=== PATIENT | female | born 1980 | race Caucasian/White ===

== ENCOUNTER 2018-10-14 20:00 | Inpatient (IN) | payer OTHER ==
--- NOTE | 2018-10-14 16:59 | PDOC.FPROB ---
Addendum entered and electronically signed by Crystal Garcias MD 10/14/18 23:21 : US @ 38.2wks - Fetus: single, cephalic BPD: 8.95, HC: 33.07, AC: 34.35, FL: 7.78 EFW: 3447, [place]: 63.8% No abnormalities of anatomy OSIRIS 18 Original Note: FMR OB H&P: HPI - History of Present Illness Chief Complaint: balloon induction Indentification: at 39.4 by LMP History of Present Illness: at 39.4 by LMP here for medically indicated IOL A2GDM. complicated by late to care. Had 3T U/S done, prior deliveries were all and home births. Diagnosed with A2GDM this and per notes sugars have been controlled on metformin. Reports sugars have been running 95- 103 fasting and 2hrs post prandial around 95. Today she denies VB, LOF, CTX. Denies headaches, vision changes, NVD. Endorses FM. Endorses swelling in hands and feet more than usual. Denies polyuria, polydipsia. F F Primary Care Physician: Dr. Seamus Sauceda FMR OB H&P: Current - Care : 11 Para: [id number] Gestational age: 39.4 Due date: 10/17/18 Dating Criteria: LMP, 3T sono - OB Labs Blood type: A RH: positive Antibody Screen: unknown HIV: negative RPR: negative HepBsAg: negative Rubella: immune Quad screen: unknown 1 hour gtt: not done GBS: negative - Anatomy Survey Anatomy survey: US @ 30w2D - Presentation: cephalic - Fetus: single, female BPD: 7.5 HC: 29.39 AC: 28.48 FL: 6.32 EFW 1951 [place] 94.3% No abnormalities - Additional Ultrasound Additional: US performed today: OSIRIS of 24 cm FMR OB H&P: History - Past Medical History PMH: Rheumatoid arthritis - OB History OB History: #1 - miscarriage #2 - 03/20/2001, 37+wks, , Male #3 - 05/03/2002, 36wks, , Male - Induced due to non-reassuring heart tones #4 - 03/20/2005, 37+wks, , Male #5 - 06/26/2007, 37+wks, , Male #6 - 04/18/2010, 37+wks, , Female #7 - 12/20/2011, 37+wks, , Male #8 - 04/07/2013, 37+wks, , Female #9 - miscarriage #10 - 03/16/2014, 38wks, , Male #11 - 03/12/2015, 40wks, , Male - Surgical History Sx History: denies - Social History Social History: denies t/e/d - Family History Family History: denies hx of congenital malformations FMR OB H&P: Medications - Current Home Medications: Medication Instructions Recorded Confirmed Type metFORMIN [Glucophage] 500 mg PO BID 10/14/18 10/14/18 History Allergies/Adverse Reactions: Allergies Allergy/AdvReac Type Severity Reaction Status Date / Time No Known Allergies Allergy Verified 10/14/18 21:18 FMR OB H&P: ROS - Review of Systems General: denies: fever/chills, weight/appetite/sleep changes, night sweats, fatigue Eyes: denies: vision changes, double vision, scotomas, floaters ENT: denies: nasal congestion, rhinorrhea, sore throat Cardiovascular: reports: edema. denies: chest pain, palpitation Respiratory: denies: cough, congestion, shortness of breath Gastrointestinal: denies: abdominal pain, nausea, vomiting, diarrhea, constipation Genitourinary (Female): reports: contractions (irregular). denies: dysuria, vaginal discharge, vaginal pain, vaginal bleeding, vaginal pressure Neurologic: denies: weakness Integumentary: denies: rash, lesions FMR OB H&P: Vital Signs - Heart Tones Baseline: 145 Variability: moderate Acceleration: present Deceleration: absent Category: category 1 [place] contractions every: irregular FMR OB H&P: Physical Exam - Physical Exam General: NAD, awake, alert and oriented HEENT: normocephalic and atraumatic, PERRLA, MMM, grossly normal vision, grossly normal hearing, normal nasal mucosa, good dention Neck: supple, FROM, trachea midline Chest: non-tender to palpation, no lesions Breast: symmetric, non-tender, no palpable masses, no skin changes Heart: RRR, normal S1/S2, no murmurs/rubs/gallops, pulses present, no edema General: CTAB, no respiratory distress, good air movement, no rales/rhonchi, no wheezing, no retractions Abdomen: soft, gravid, non-tender, bowel sound present Musculoskeletal: normal gait and station, FROM in all four extremities Deviation from normal: trace edema in bilateral LE Skin: no rash, good tugor, capillary refill <2 seconds Lymphatic: no unusual bruising or bleeding, no purpura, no petechia Psychiatric: intact recent and remote memory, good judgement and insight, normal mood and affect - Pelvic Exam Vulva: normal hair distribution SVE: /-3 Wyatt score: 7 Membranes: intact Presentation: cephalic Estimated Weight: 8 lbs FMR OB H&P: A/P - Problem List (1) Grand multipara in labor in third trimester Current Visit: No Status: Acute Code(s): O09.43 - SUPRVSN OF W GRAND MULTIPARITY, THIRD TRIMESTER (2) Gestational diabetes Current Visit: No Status: Acute Code(s): O24.419 - GESTATIONAL DIABETES MELLITUS IN , UNSP CONTROL (3) AMA (advanced maternal age) multigravida 35+ Current Visit: No Status: Acute Code(s): O09.529 - SUPERVISION OF ELDERLY MULTIGRAVIDA, UNSPECIFIED TRIMESTER (4) Late care Current Visit: No Status: Acute Code(s): O09.30 - SUPRVSN OF PREG W INSUFFICIENT ANTENAT CARE, UNSP TRIMESTER (5) Single in third trimester Current Visit: No Status: Acute Code(s): Z34.93 - ENCNTR FOR SUPRVSN OF NORMAL PREG, UNSP, THIRD TRIMESTER (6) Polyhydramnios affecting Current Visit: Yes Status: Acute Code(s): O40.9XX0 - POLYHYDRAMNIOS, UNSP TRIMESTER, NOT APPLICABLE OR UNSP Discussion: 38 yo at 39.4 by LMP here for medically indicated IOL for A2GDM sIUP, term in multip - FHT:145 - SVE: /-3 - Wyatt: 4 - Desires PP BTL - Will get glucose, CMP, GC/Ch, start IVF - FHT: cat 1, mod rhett, accels present, no decels - Will type and cross 2 uPRBCs due to patient being at risk for PPH - Will start pitocin and titrate as tolerated - Patient unsure of epidural - will have patient watch video - Admit to L&D, plan for Polyhydramnios - measured w/ US on arrival, OSIRIS of 24 cm - May proceed with slow leak AROM if needed once baby more engaged, risk for cord prolapse A2GDM - POC, insulin if needed - Will obtain glucose now, Q4 glucose checks. Will increase glucose check frequency if needed. Hold metformin. AMA - Aware Late to PNC - Aware, no prior records aside from clinic [facility] - Aware Case discussed with Dr. Camacho Addkiaraum - Attending - Attending Attestation Date/Time: 10/14/182137 I personally evaluated the patient and discussed the management with Dr. Garcias I agree with the History, Examination, Assessment and Plan documented above with any addition or exceptions noted below. 38 yo female at 39.4 wks by LMP/30.2 wk sono admitted for IOL 2/2 A2GDM and polyhydramnios. FIDELINA: 10/17/18 complications: AMA, grandmultip, uncontrolled A2GDM, polyhydramnios, late to care, hx of medically indicated PTD at 36 wks, BMI 30, Anemia of VS reviewed. Bedside sono: Cephalic. OSIRIS 24 cm. Wyatt 7. 4 cm. R/B/A discussed. Consents signed. Will proceed with pitocin. Continuous monitoring. Repeat exam in 4 hours or as needed. GBS negative. Declined Flu and Tdap. Unable to locate chlamydia, gonorrhea, or pap smear. CT/ GC PCR collected today. Will need pp pap. CMP pending. Will continue acuchecks q 4 hours in latent labor and switch to q 1 to 2 hours in active labor. Will correct with SSI. Risk for PPH. Will use pitocin and miso during 3rd stage of labor. 2 units placed on hold. Carloz
[2018-10-14 21:28] VITALS: BMI 32.9
[2018-10-14] MEDS: Lactated Ringer's 1,000 ML IV SCH (21:50)
[2018-10-14] MEDS ORDERED: Promethazine HCl 25 MG/ML VIAL IM PRN (21:55)
[2018-10-14] MEDS ORDERED: Ondansetron PF 4 MG/2 ML Vial IVP PRN (21:55)
[2018-10-14] MEDS ORDERED: Lidocaine 1% (PF) 30 ML VIAL SC PRN (21:55)
[2018-10-14] MEDS ORDERED: Lactated Ringer's 1,000 ML IV SCH (22:15)
[2018-10-14 22:22] LABS: Hemoglobin 10.9 g/dL (12.0-16.0); Mean Corpuscular HGB CONC 32.1 g/dL (32.0-36.0); Mean Corpuscular Hemoglobin 25.2 pg (27.0-31.0); Mean Corpuscular Volume 78.6 fL (78.0-98.0); Mean Platelet Volume 10.3 fL (7.4-10.4); Platelet Count 222 thou/uL (130-400); RBC Distribution Width 14.8 % (11.5-14.5); Red Blood Cell (RBC) Count 4.32 mill/uL (4.20-5.40); White Blood Cell (WBC) Count 10.2 thou/uL (4.8-10.8)
[2018-10-14 22:36] LABS: ALT (SGPT) Less than 7 U/L (8-55); AST (SGOT) 10 U/L (5-34); Albumin 3.2 g/dL (3.5-5.0); Alkaline Phosphatase 156 U/L (40-150); Anion Gap 14 mmol/L (10-20); BUN (Urea Nitrogen) 11 mg/dL (7.0-18.7); Bilirubin, Total 0.4 mg/dL (0.2-1.2); Calc. Creatinine Clearance 176 mL/min (70-130); Calcium 8.7 mg/dL (7.8-10.44); Carbon Dioxide 21 mmol/L (22-29); Chloride 106 mmol/L (98-107); Estimated GFR-MDRD Greater than 90; Globulin 2.7 g/dL (2.4-3.5); Glucose 93 mg/dL (70-105); Protein, Total 5.9 g/dL (6.0-8.3); Sodium 137 mmol/L (136-145)
[2018-10-14 22:54] LABS: Syphilis Antibody Nonreactive (Nonreactive)
[2018-10-14 22:55] LABS: HBSAg Index 0.24 S/CO (0-0.99); Hep B Surf Ag Non-Reactive S/CO (NonReactive)
[2018-10-14] MEDS ORDERED: NS w/ Oxytocin 10 units 500 ML ONE (22:56)
[2018-10-14] MEDS ORDERED: NS w/ Oxytocin 10 units 500 ML IV SCH (23:00)
[2018-10-15] MEDS ORDERED: Fentanyl 4 mcg/Bup 0.1% Cadd 100 ML ONE ×2 (00:18→06:34)
[2018-10-15] MEDS ORDERED: Lidocaine 1.5%/Epinephrine 1:200,000 5 ML AMPUL IJ ONE (00:34)
[2018-10-15] MEDS ORDERED: Promethazine HCl 25 MG/ML VIAL IM PRN (00:50)
[2018-10-15] MEDS ORDERED: ePHEDrine/0.9% NaCl/PF SYRINGE 50 mg/10 ml SLOW IVP PRN (00:50)
[2018-10-15] MEDS ORDERED: Eucerin (Mineral Oil/Petrolatum,White) 30 gm Jar TOP PRN (00:50)
[2018-10-15] MEDS ORDERED: diphenhydrAMINE 50 MG/ML VIAL IVP PRN (00:50)
[2018-10-15] MEDS ORDERED: Naloxone HCl 0.4 mg/ml Vial IVP PRN ×2 (00:50)
[2018-10-15] MEDS: Fentanyl 4 mcg/Bupivacaine 0.1% Cassette 100 ML EPIDURAL SCH ×2 (00:50→06:36)
[2018-10-15] MEDS ORDERED: Lactated Ringer's 500 ML IV PRN (00:50)
[2018-10-15] MEDS ORDERED: Acetaminophen 325 MG TAB PO PRN (00:50)
[2018-10-15] MEDS ORDERED: Ondansetron PF 4 MG/2 ML Vial IVP PRN (00:50)
[2018-10-15] MEDS: Lactated Ringer's 1,000 ML IV SCH (00:54)
[2018-10-15] MEDS ORDERED: Communication Order-Pharmacy FS SCH (01:00)
[2018-10-15] MEDS ORDERED: Misoprostol 200 MCG TAB ONE (02:56)
--- NOTE | 2018-10-15 02:58 | PDOC.LDPN ---
Labor & Delivery Progress Note - Subjective Subjective: comfortable - Objective Vital signs reviewed and normal: yes General: NAD, resting, breathing through contractions Uterine fundus: non tender Dilation: 5 Effacement: 50% Station: -3 FHT: category 1, early decelerations, variability present [place] contractions every: every 2-3 min Other exam findings: FHR 140 AROM: clear fluid Resuscitative measures: maternal IV fluids - Assessment (1) Grand multipara in labor in third trimester Code(s): O09.43 - SUPRVSN OF W GRAND MULTIPARITY, THIRD TRIMESTER Status: Acute (2) Gestational diabetes Code(s): O24.419 - GESTATIONAL DIABETES MELLITUS IN , UNSP CONTROL Status: Chronic Qualifiers: Gestational diabetes mellitus control: oral hypoglycemic-controlled Trimester: third trimester Qualified Code(s): O24.415 - Gestational diabetes mellitus in , controlled by oral hypoglycemic drugs (3) AMA (advanced maternal age) multigravida 35+ Code(s): O09.529 - SUPERVISION OF ELDERLY MULTIGRAVIDA, UNSPECIFIED TRIMESTER Status: Chronic Qualifiers: Trimester: unspecified trimester Qualified Code(s): O09.529 - Supervision of elderly multigravida, unspecified trimester (4) Late care Code(s): O09.30 - SUPRVSN OF PREG W INSUFFICIENT ANTENAT CARE, UNSP TRIMESTER Status: Acute (5) Single in third trimester Code(s): Z34.93 - ENCNTR FOR SUPRVSN OF NORMAL PREG, UNSP, THIRD TRIMESTER Status: Acute Plan: continue plan of care, pitocin for augmentation -: 38 yo at 39.4 by LMP here for medically indicated IOL for A2GDM sIUP, term in multip - FHT:140 - SVE: /-3 @ 0230 - Desires PP BTL - continue IVF - FHT: cat 1, mod rhett, accels present, early decels - CTX every 2-3min - SROM @ 0230 - sugars controlled - Will type and cross 2 uPRBCs due to patient being at risk for PPH - Pit at 6, adequate CTX - Epidural placed at 0030, patient comfortable - Continue current management, plan for Polyhydramnios - measured w/ US on arrival, OSIRIS of 24 cm - SROM @ 0230 A2GDM - POC, insulin if needed - Q4 glucose checks. Hold metformin. Sugars wnl AMA - Aware Late to PNC - Aware, no prior records aside from clinic [facility] - Aware Case discussed with Dr. Camacho Addendum - Attending - Attending Attestation Date/Time: 10/15/18 0300 I personally evaluated the patient and discussed the management with Dr. Garcias I agree with the History, Examination, Assessment and Plan documented above with any addition or exceptions noted below. 38 yo female at 39.5 wks by LMP/30.2 wk sono admitted for IOL 2/2 A2GDM and polyhydramnios. FIDELINA: 10/17/18 complications: AMA, grandmultip, uncontrolled A2GDM, polyhydramnios, late to care, hx of medically indicated PTD at 36 wks, BMI 30, Anemia of VS reviewed. Bedside sono: Cephalic. OSIRIS 24 cm. Now 5 cm. Continue pit per protocol. FHT cat 1 tracing. Continuous monitoring. Repeat exam in 2 hours or as needed. GBS negative. Declined Flu and Tdap. Unable to locate chlamydia, gonorrhea, or pap smear. CT/ GC PCR collected today. Will need pp pap. Will continue acuchecks q 4 hours in latent labor and switch to q 1 to 2 hours in active labor. Will correct with SSI. Risk for PPH. Will use pitocin and miso during 3rd stage of labor. 2 units placed on hold. Carloz
--- NOTE | 2018-10-15 04:41 | PDOC.LDPN ---
Labor & Delivery Progress Note - Subjective Subjective: comfortable - Objective Vital signs reviewed and normal: yes General: NAD, resting, breathing through contractions Uterine fundus: non tender Dilation: 5 Effacement: 50% Station: -3 FHT: category 1, variability present [place] contractions every: every 2-4 min AROM: clear fluid Resuscitative measures: maternal IV fluids - Assessment (1) Grand multipara in labor in third trimester Code(s): O09.43 - SUPRVSN OF W GRAND MULTIPARITY, THIRD TRIMESTER Status: Acute (2) Gestational diabetes Code(s): O24.419 - GESTATIONAL DIABETES MELLITUS IN , UNSP CONTROL Status: Chronic Qualifiers: Gestational diabetes mellitus control: oral hypoglycemic-controlled Trimester: third trimester Qualified Code(s): O24.415 - Gestational diabetes mellitus in , controlled by oral hypoglycemic drugs (3) AMA (advanced maternal age) multigravida 35+ Code(s): O09.529 - SUPERVISION OF ELDERLY MULTIGRAVIDA, UNSPECIFIED TRIMESTER Status: Chronic Qualifiers: Trimester: unspecified trimester Qualified Code(s): O09.529 - Supervision of elderly multigravida, unspecified trimester (4) Late care Code(s): O09.30 - SUPRVSN OF PREG W INSUFFICIENT ANTENAT CARE, UNSP TRIMESTER Status: Acute (5) Single in third trimester Code(s): Z34.93 - ENCNTR FOR SUPRVSN OF NORMAL PREG, UNSP, THIRD TRIMESTER Status: Acute Plan: continue plan of care, pitocin for augmentation -: 38 yo at 39.4 by LMP here for medically indicated IOL for A2GDM sIUP, term in multip - FHT:130 - SVE: /-3 @ 0400 - Desires PP BTL - continue IVF - FHT: cat 1, mod rhett, accels present, early decels - CTX every 2-4min - SROM @ 0230 - sugars controlled - Will type and cross 2 uPRBCs due to patient being at risk for PPH - Pit at 8, adequate CTX - Epidural placed at 0030, patient comfortable - Continue current management, plan for Polyhydramnios - measured w/ US on arrival, OSIRIS of 24 cm - SROM @ 0230 A2GDM - POC, insulin if needed - Q4 glucose checks. Hold metformin. Sugars wnl AMA - Aware Late to PNC - Aware, no prior records aside from clinic [facility] - Aware Addendum - Attending - Attending Attestation Date/Time: 10/15/18 0090 I personally evaluated the patient and discussed the management with Dr. Garcias I agree with the History, Examination, Assessment and Plan documented above with any addition or exceptions noted below. 38 yo female at 39.5 wks by LMP/30.2 wk sono admitted for IOL 2/2 A2GDM and polyhydramnios. FIDELINA: 10/17/18 complications: AMA, grandmultip, uncontrolled A2GDM, polyhydramnios, late to care, hx of medically indicated PTD at 36 wks, BMI 30, Anemia of VS reviewed. Bedside sono: Cephalic. OSIRIS 24 cm. Remains 5 cm. SROM at 0230 with clear fluid. Continue pit per protocol. FHT cat 1 tracing. Continuous monitoring. Repeat exam in 2 hours or as needed. GBS negative. Declined Flu and Tdap. Unable to locate chlamydia, gonorrhea, or pap smear. CT/ GC PCR collected today. Will need pp pap. Will continue acuchecks q 4 hours in latent labor and switch to q 2 hours in active labor. Will correct with SSI. Glucose at goal. Risk for PPH. Will use pitocin and miso during 3rd stage of labor. 2 units placed on hold. Carloz
--- NOTE | 2018-10-15 06:04 | PDOC.LDPN ---
Labor & Delivery Progress Note - Subjective Subjective: comfortable, vaginal pressure - Objective Vital signs reviewed and normal: yes General: NAD, resting, breathing through contractions Uterine fundus: non tender Dilation: 7 Effacement: 90% Station: -1 FHT: category 1, variability present [place] contractions every: every 2-4 min Resuscitative measures: maternal IV fluids - Assessment (1) Grand multipara in labor in third trimester Code(s): O09.43 - SUPRVSN OF W GRAND MULTIPARITY, THIRD TRIMESTER Status: Acute (2) Gestational diabetes Code(s): O24.419 - GESTATIONAL DIABETES MELLITUS IN , UNSP CONTROL Status: Chronic Qualifiers: Gestational diabetes mellitus control: oral hypoglycemic-controlled Trimester: third trimester Qualified Code(s): O24.415 - Gestational diabetes mellitus in , controlled by oral hypoglycemic drugs (3) AMA (advanced maternal age) multigravida 35+ Code(s): O09.529 - SUPERVISION OF ELDERLY MULTIGRAVIDA, UNSPECIFIED TRIMESTER Status: Chronic Qualifiers: Trimester: unspecified trimester Qualified Code(s): O09.529 - Supervision of elderly multigravida, unspecified trimester (4) Late care Code(s): O09.30 - SUPRVSN OF PREG W INSUFFICIENT ANTENAT CARE, UNSP TRIMESTER Status: Acute (5) Single in third trimester Code(s): Z34.93 - ENCNTR FOR SUPRVSN OF NORMAL PREG, UNSP, THIRD TRIMESTER Status: Acute Plan: continue plan of care, pitocin for augmentation -: 38 yo at 39.4 by LMP here for medically indicated IOL for A2GDM sIUP, term in multip - FHT:140 - SVE: /-1 @ 0400 - Desires PP BTL - continue IVF - FHT: cat 1, mod rhett, accels present, no decles - CTX every 2-4min - SROM @ 0230 - sugars controlled - Will type and cross 2 uPRBCs due to patient being at risk for PPH - Pit at 4, adequate CTX - Epidural placed at 0030, patient comfortable - Continue current management, plan for Polyhydramnios - measured w/ US on arrival, OSIRIS of 24 cm - SROM @ 0230 A2GDM - POC, insulin if needed - Q4 glucose checks. Hold metformin. Sugars wnl AMA - Aware Late to PNC - Aware, no prior records aside from clinic [facility] - Aware Addendum - Attending - Attending Attestation Date/Time: 10/15/18 0611 I personally evaluated the patient and discussed the management with Dr. Garcias I agree with the History, Examination, Assessment and Plan documented above with any addition or exceptions noted below. 38 yo female at 39.5 wks by LMP/30.2 wk sono admitted for IOL 2/2 A2GDM and polyhydramnios. FIDELINA: 10/17/18 complications: AMA, grandmultip, uncontrolled A2GDM, polyhydramnios, late to care, hx of medically indicated PTD at 36 wks, BMI 30, Anemia of VS reviewed. Bedside sono: Cephalic. OSIRIS 24 cm. Now 7 cm. 100%. SROM at 0230 with clear fluid. Continue pit per protocol. FHT cat 1 tracing. Continuous monitoring. Repeat exam in 2 hours or as needed. GBS negative. Declined Flu and Tdap. Unable to locate chlamydia, gonorrhea, or pap smear. CT/ GC PCR collected today. Will need pp pap. Switch to q 2 hour accu checks. Will correct with SSI. Glucose at goal. Risk for PPH. Will use pitocin and miso during 3rd stage of labor. 2 units placed on hold. Carloz
[2018-10-15] MEDS: NS / Oxytocin 40 units/1000ml 1,000 ML IV PRN ×2 (07:20→08:07)
--- NOTE | 2018-10-15 07:24 | PDOC.OPDEL ---
OB Operative/Delivery Note Delivery Dr/Surgeon: Kiara Garcias Bray Pre-Delivery Diagnosis: active labor Procedure/Post Delivery Dx: spontaneous vaginal delivery Weeks gestation: 39 (39.5) Anesthesia: epidural - Findings A Sex: female - 1 min: 8 - 5 min: 9 - Additional Findings/Plan Placenta delivered: spontaneous Repaired Obstetrical Laceration: none Estimated blood loss: 300 Compilations/Other Findings: This is 38yo F [id number] 1 2 10 @ 39.5wks who delivered a viable F infant @ 0702 on 10/15/18. EBL 300ml. Following an antepartum complicated by AMA, A2GDM controlled with metformin, late to care, and polyhydramnios, a vigorous F was delivered over an intact perineum in the occipitoanterior position. Anterior Shoulder and then remainder of the body delivered. No nuchal cord. The head was held down and mouth and nares were bulb suctioned. Cord clamped after delayed cord clamping and cut and cord blood collected. Placenta delivered intact with a 3 vessel cord noted. Fundal massage was performed and the fundus was firm. The cervix and vagina were inspected and found to be free of lacerations. went to nursery in good condition for routine care. Apgars were 8/9 at 1 & 5 minutes, respectively. Patient tolerated delivery well and went to after routine recovery/care. Attending Note: I was present and participated in the above documented procedure. 38 yo female at 39.5 wks now s/p uncomplicated at 0702 on 10/15/18. Female fetus delivered in OA position. No nuchal cord. No laceration. Placental delivered spontaneously. 3rd stage of labor was managed actively with pitocin. Miso 600 mcg [place] was added due to risk factors. to nursery and patient to pp for routine care. ABrayMD Post delivery plan: routine recovery
[2018-10-15] MEDS ORDERED: Misoprostol 100 MCG TAB VAG SCH (08:15)
[2018-10-15] MEDS ORDERED: diphenhydrAMINE 25 MG CAP PO PRN (09:55)
[2018-10-15] MEDS ORDERED: Bisacodyl 10 MG SUPP PR PRN (09:55)
[2018-10-15] MEDS ORDERED: Lanolin Ointment 7 GM TUBE TOP PRN (09:55)
[2018-10-15] MEDS ORDERED: Benzocaine/Menthol 20-0.5% 60 ML CAN TOP PRN (09:55)
[2018-10-15] MEDS ORDERED: Methylergonovine 0.2 MG/ML VIAL IM PRN (09:55)
[2018-10-15] MEDS ORDERED: Milk Of Magnesia 30 ML UDCUP PO PRN (09:55)
[2018-10-15] MEDS ORDERED: Misoprostol 200 MCG TAB PO SCH ×2 (10:00→10:15)
[2018-10-15] MEDS ORDERED: Adacel (T-DAP) 0.5 ML SYRINGE IM ONE (10:15)
[2018-10-15] MEDS: Ibuprofen 800 MG TAB PO SCH ×2 (14:28→21:24)
[2018-10-15] MEDS: Ferrous Sulfate 325 MG TAB PO SCH (17:21)
[2018-10-15] MEDS: Docusate Calcium (SURFAK) 240 MG CAP PO SCH (21:25)
[2018-10-16] MEDS: Ibuprofen 800 MG TAB PO SCH (05:05)
[2018-10-16 05:34] LABS: Mean Corpuscular HGB CONC 32.1 g/dL (32.0-36.0); Mean Corpuscular Hemoglobin 25.6 pg (27.0-31.0); Mean Corpuscular Volume 79.5 fL (78.0-98.0); Mean Platelet Volume 9.8 fL (7.4-10.4); Platelet Count 169 thou/uL (130-400); RBC Distribution Width 14.7 % (11.5-14.5); Red Blood Cell (RBC) Count 3.91 mill/uL (4.20-5.40); White Blood Cell (WBC) Count 8.4 thou/uL (4.8-10.8)
[2018-10-16] MEDS ORDERED: Prenatal Vitamin 1 TAB PO SCH (09:00)
[2018-10-16] MEDS: Ferrous Sulfate 325 MG TAB PO SCH (09:33)
[2018-10-16] MEDS: Docusate Calcium (SURFAK) 240 MG CAP PO SCH (09:34)
--- NOTE | 2018-10-16 10:02 | PDOC.PP ---
Post Progress Note Post Day #: 1 Subjective: Patient doing well. Ambulating well. Tolerating diet. Up walking in room and showered this AM. PO intake tolerated: yes Flatus: yes Ambulation: yes Vital Signs (12 hours) Temp Pulse Resp BP 10/16/18 05:10 98.7 F 73 16 110/64 10/16/18 00:00 98.7 F 78 16 120/72 Weight Weight 87.09 kg - Physical Examination General: NAD Cardiovascular: no m/r/g, RRR Respiratory: clear to auscultation bilaterally, non-labored breathing Abdominal: lochia (dcreased, normal), no distention, appropriately TTP Fundus firm & at: below umbilicus Extremities: negative homans (B) Neurological: no gross focal deficits Psychiatric: A&Ox3, normal affect Result Diagrams: 10/16/18 05:19 10/14/18 21:50 Additional Labs: Post Labs Blood Type A POSITIVE 10/14/18 23:15 Hep Bs Antigen Non-Reactive S/CO (NonReactive) 10/14/18 21:50 (1) Term delivered Code(s): O80 - ENCOUNTER FOR FULL-TERM UNCOMPLICATED DELIVERY Status: Acute (2) Grand multiparity Code(s): Z64.1 - PROBLEMS RELATED TO MULTIPARITY Status: Chronic (3) AMA (advanced maternal age) multigravida 35+ Code(s): O09.529 - SUPERVISION OF ELDERLY MULTIGRAVIDA, UNSPECIFIED TRIMESTER Status: Chronic Qualifiers: Trimester: unspecified trimester Qualified Code(s): O09.529 - Supervision of elderly multigravida, unspecified trimester (4) Gestational diabetes Code(s): O24.419 - GESTATIONAL DIABETES MELLITUS IN , UNSP CONTROL Status: Chronic Qualifiers: Gestational diabetes mellitus control: oral hypoglycemic-controlled Trimester: third trimester Qualified Code(s): O24.415 - Gestational diabetes mellitus in , controlled by oral hypoglycemic drugs (5) Polyhydramnios affecting Code(s): O40.9XX0 - POLYHYDRAMNIOS, UNSP TRIMESTER, NOT APPLICABLE OR UNSP Status: Inactive - Assessment/Plan 38 yr old G11 P 911(10) now PP day # 1 s/p at 39.4 wks. tIUP, delivered -doing well, pain controlled, lochia normal -routine PP care. -ready for discharge -f/u in 2 wks with PCP grand multiparity -no PP hemorrhage -considering contraception, possible vasectomy for A2GDM -counseled on need for 6 wk diabetes screen -f/u with PCP AMYulissa Addendum - Attending - Attending Attestation Date/Time: 10/19/18 1510 I personally evaluated the patient and discussed the management with Dr. [] I agree with the History, Examination, Assessment and Plan documented above with any addition or exceptions noted below.
[2018-10-16 10:44] VITALS: BP 139/93; TEMP 98.4
[2018-10-16 23:47] LABS: Chlamydia by PCR Not Detected (NotDetected); GC by PCR Not Detected (NotDetected)
== END 2018-10-16 13:35 | disposition home or self-care (01) | DRG 807 ==
LOC: L&D 20:45 → 3SW 10-15 10:13
PROVIDERS: ADMIT Family Medicine; ATTEND Family Medicine
PROC: 10E0XZZ Delivery of Products of Conception, External Approach (ICD-10-PCS; principal; 2018-10-15)
PROC: 3E033VJ Introduction of Other Hormone into Peripheral Vein, Percutaneous Approach (ICD-10-PCS; 2018-10-15)
DX: O24.425 Gestational diabetes mellitus in childbirth, controlled by oral hypoglycemic drugs (principal); Z37.0 Single live birth; O40.3XX0 Polyhydramnios, third trimester, not applicable or unspecified; O99.02 Anemia complicating childbirth; O99.89 Other specified diseases and conditions complicating pregnancy, childbirth and the puerperium; D64.9 Anemia, unspecified; O76 Abnormality in fetal heart rate and rhythm complicating labor and delivery; M06.9 Rheumatoid arthritis, unspecified; Z3A.39 39 weeks gestation of pregnancy
CPT/HCPCS: 36415; 36416; 51702; 80053; 82947; 85027; 86780; 86850; 86900; 86901; 87340; 87491; 87591; 90715; J2405; J3490

== ENCOUNTER 2018-10-21 17:22 | Observation (INO) | payer OTHER ==
[2018-10-21 18:18] VITALS: BMI 30.7
--- NOTE | 2018-10-21 18:23 | PDOC.LDHP ---
Labor and Delivery H&P Chief complaint: other (Headache, RUQ pain) HPI: Mrs. Ash is a 38 y/o .1.1.(10) that delivered a TAGA female at 39.4 weeks on 10/15/18 antepartum course included being late to care and A2 GDM. routine , no lacerations, PPH, elevated blood pressures. DCd home with routine follow up recommended. She came to clinic today with RUQ abdominal pain and Headache since earlier that morning. She denies SOB, scomata, or continued RUQ/GARNER. She had elevated BP in clinic, not severe range. She has no known hx of prE. most of her prior deliveries were home SVDs. OB History Details: Grand multiparity, AMA, A2 GDM Current complications: gestational diabetes Abnormal US findings: No Past Medical History: none Current medications: none Previous surgical history: none Allergies/Adverse Reactions: Allergies Allergy/AdvReac Type Severity Reaction Status Date / Time No Known Allergies Allergy Verified 10/14/18 21:18 Social history: none - Physical Exam Abnormal vital signs: elevated BP, non severe range General: NAD Heart: RRR Lungs: CTAB Abdomen: NTTP (no RUQ tenderness, masses/distension. bowel sounds present) Extremeties: no edema - OB Labs Blood type: A RH: positive Antibody Screen: unknown HIV: negative RPR: negative HEPSAg: negative 1 hour GCT: unknown GBS: negative Urine drug screen: not done Rubella: immune - Assessment [pre-ecclampsia with severe features - Plan -: - Begin mag, 4g loading, 2g/hr - vitals, mag check q1hr, monitor urine output - NPO w/ ice chips - 10mg labetolol q4hr prn for BPs>160 - CBC, CMP, Pr/Cr wnl, repeat in AM code: full ppx: lovenox Dispo: admit to L&D for magnesium therapy for pre-E, close monitoring Addendum - Attending - Attending Attestation Date/Time: 10/21/182046 I personally evaluated the patient and discussed the management with Dr. Sauceda. I agree with and repeated the History, Examination, Assessment and Plan documented above with any addition or exceptions noted below. Patient with h/o headache and RUQ pain, now improved, but has had 2 severe range pressures. Will mag and give labetalol. Monitor closely.
[2018-10-21 18:39] LABS: #Basophils 0.1 thou/uL (0.0-0.2); #Lymphocytes 2.7 thou/uL (1.20-3.40); #Monocytes 0.7 thou/uL (0.11-0.59); #Neutrophils 6.3 thou/uL (1.40-6.50); %Basophils 0.7 % (0.0-1.0); %Eosinophils 0.4 % (0.0-10.0); %Lymphocytes 27.7 % (21.0-51.0); %Monocytes 7.2 % (0.0-10.0); Hemoglobin 11.3 g/dL (12.0-16.0); Mean Corpuscular HGB CONC 31.1 g/dL (32.0-36.0); Mean Corpuscular Volume 80.5 fL (78.0-98.0); Mean Platelet Volume 9.1 fL (7.4-10.4); Platelet Count 311 thou/uL (130-400); RBC Distribution Width 14.9 % (11.5-14.5); Red Blood Cell (RBC) Count 4.52 mill/uL (4.20-5.40); White Blood Cell (WBC) Count 9.9 thou/uL (4.8-10.8)
[2018-10-21 18:52] LABS: ALT (SGPT) 12 U/L (8-55); AST (SGOT) 12 U/L (5-34); Albumin 3.5 g/dL (3.5-5.0); Alkaline Phosphatase 113 U/L (40-150); Anion Gap 13 mmol/L (10-20); BUN (Urea Nitrogen) 15 mg/dL (7.0-18.7); Bilirubin, Total 0.4 mg/dL (0.2-1.2); Calc. Creatinine Clearance 122 mL/min (70-130); Calcium 9.4 mg/dL (7.8-10.44); Carbon Dioxide 28 mmol/L (22-29); Chloride 106 mmol/L (98-107); Estimated GFR-MDRD 80; Globulin 3.2 g/dL (2.4-3.5); Glucose 90 mg/dL (70-105); Potassium 3.9 mmol/L (3.5-5.1); Protein, Total 6.7 g/dL (6.0-8.3); Sodium 143 mmol/L (136-145)
[2018-10-21 19:04] LABS: Creatinine, Urine 46.37 mg/dL (47-110); Protein, Urine Random Quant Less than 10 mg/dL (1-14)
[2018-10-21] MEDS ORDERED: Labetalol HCl 100 MG/20 ML VIAL SLOW IVP PRN (21:10)
[2018-10-21] MEDS ORDERED: Calcium Gluconate 4.6 MEQ in Sodium Chloride 0.9% 100 ML IVPB PRN (21:10)
[2018-10-21] MEDS ORDERED: Magnesium Sulfate 20 GM/WATER 500 ML BAG IVPB SCH (21:10)
[2018-10-21] MEDS ORDERED: Magnesium Sulfate 20 gm/500 ml 20 GM/500 ML BAG ONE (21:18)
[2018-10-21] MEDS: Magnesium Sulfate 20 gm/500 ml 20 GM/500 ML BAG IVPB SCH (21:30)
--- NOTE | 2018-10-21 23:40 | PDOC.EVN ---
Event Note - Event Note Event Note: 2hr Mag check: Pt resting comfortably in bed, denies headache or RUQ pain. RRR, CTAB abd NTTP reflexes 2+, sensation intact Urine output 200ml and 650ml per hour BP 127/64 continue current plan of care
--- NOTE | 2018-10-22 01:37 | PDOC.EVN ---
Event Note - Event Note Event Note: 4hr Mag check: Pt resting comfortably in bed, denies headache, SOB, or RUQ pain. RRR, CTAB abd NTTP reflexes 2+, sensation intact Urine output 650ml and 450ml per hour BP 125/71 continue current plan of care
--- NOTE | 2018-10-22 03:42 | PDOC.EVN ---
Event Note - Event Note Event Note: 6hr Mag check: Pt resting comfortably in bed, reports mild frontal headhache, denies SOB or RUQ pain. RRR, CTAB abd NTTP reflexes 2+, sensation intact Urine output 550ml over 2 hours BP 109/71 continue current plan of care
[2018-10-22] MEDS: Magnesium Sulfate 20 gm/500 ml 20 GM/500 ML BAG IVPB SCH (06:15)
--- NOTE | 2018-10-22 06:25 | PDOC.EVN ---
Event Note - Event Note Event Note: 8hr Mag check: Pt resting comfortably in bed, reports mild frontal headhache, denies SOB or RUQ pain. RRR, CTAB abd NTTP reflexes 2+, sensation intact Urine output 200ml and 150ml per hour BP 121/69 continue current plan of care
[2018-10-22] MEDS ORDERED: Acetaminophen 325 MG TAB PO PRN (06:46)
[2018-10-22] MEDS ORDERED: Lactated Ringer's 1,000 ML IV SCH (08:30)
--- NOTE | 2018-10-22 08:34 | PDOC.EVN ---
Event Note - Event Note Event Note: 10hr Mag check: Pt resting comfortably in bed, reports mild frontal headache with associated blurred vision that began shortly after waking this AM. Denies any chest pain, SOB, or RUQ pain. RRR, no murmurs. CTAB abd NTTP reflexes 2+, sensation intact Urine output 325ml per hour over last 2 hours. BP 140/75 w/ HR of 81. Dispo: Will continue Mg for at least an additional 2 hours but will consider continuing for a full 24 hours, especially if GARNER does not respond to tylenol.
[2018-10-22] MEDS ORDERED: Enoxaparin Sodium 40 MG/0.4 ML SYRINGE SC SCH (09:00)
--- NOTE | 2018-10-22 16:18 | PDOC.EVN ---
Event Note - Event Note Event Note: Pt seen and examined at 1330. She is overall dong well but does note that when sitting up to eat lunch she is starting to get a little lightheaded. She would like to go home tonight if possible when mag complete. She has BP cuff. BPs reviewed and all are less than 140/90 for last 4 hours and majority are in 90-120 range systolic. Urine output: 100-150 every hour for last 6 hours. Gen: NAD, well appearing. Heart: RRR, no M/R/G Lungs: CTAB, no wheezes, rhales, rhonchi DTRs: 2+ patellar Ext: no edema in BLE 38 yr old who is 1 wk s/p presented with elevated BP, headaches, abdominal pain. preeclampsia with severe features s/p - will complete 24 hours of mag at 2130 -She has had no further severe range BPs since the 2 on admission -Majority of BPs all < 140/90 -plan to DC mag this evening and DC if no severe findings present
--- NOTE | 2018-10-22 19:12 | PDOC.EVN ---
Event Note - Event Note Event Note: 22hr Mag check: Pt resting comfortably in bed, denies headache, SOB or RUQ pain. RRR, CTAB abd NTTP reflexes 2+, sensation intact Urine output 200ml and 150ml per hour BP 108/61 continue current plan of care
== END 2018-10-22 23:45 | disposition home or self-care (01) ==
LOC: L&D/OP 17:22 → L&D 21:08 → INTOOBSV 21:08
PROVIDERS: ADMIT Emergency Medicine; ATTEND Emergency Medicine
DX: O14.15 Severe pre-eclampsia, complicating the puerperium (principal); O24.439 Gestational diabetes mellitus in the puerperium, unspecified control
CPT/HCPCS: 36415; 51702; 80053; 82570; 83735; 84156; 85025; 99285; G0378; J1650; J3475